=== PATIENT | female | born 1965 | race Caucasian/White ===

== ENCOUNTER 2021-06-08 13:09 | Emergency (ER) | payer OTHER, SELFPAY ==
--- NOTE | ~2021-06-08 | XR_ITS ---
EXAMINATION: XR TIBIA AND FIBULA, RIGHT CLINICAL INFORMATION: Fall. COMPARISON: None TECHNIQUE: AP and lateral views of the right tibia and fibula were obtained. FINDINGS: There is a small bone fragment seen along the tip of fibula likely old fracture. No additional fracture or dislocation seen. The ankle mortise and subtalar joints are normal. The soft tissues are normal. XR/XR tibia fibula RT 2V IMPRESSION: No acute fracture or bony abnormality. There is old fracture tip of distal fibula. No abnormal soft tissue swelling seen.
--- NOTE | ~2021-06-08 | XR_ITS ---
EXAMINATION: RIGHT FOOT AND ANKLE X-RAY CLINICAL INFORMATION: Fall COMPARISON: None TECHNIQUE: 3 views of the right foot and 3 views of the right ankle FINDINGS: Right foot: Bone alignment is normal. No fracture or dislocation is seen. Joint spaces are normal. Soft tissues are normal. Right ankle: No acute fracture or dislocation is seen. There is question of an old healed fracture of the distal fibular shaft. The ankle mortise is normal. Soft tissues are normal. XR/XR ankle RT min 3V IMPRESSION: No acute fracture or dislocation. Questionable trauma to the distal fibular shaft.
--- NOTE | ~2021-06-08 | XR_ITS ---
EXAMINATION: RIGHT FOOT AND ANKLE X-RAY CLINICAL INFORMATION: Fall COMPARISON: None TECHNIQUE: 3 views of the right foot and 3 views of the right ankle FINDINGS: Right foot: Bone alignment is normal. No fracture or dislocation is seen. Joint spaces are normal. Soft tissues are normal. Right ankle: No acute fracture or dislocation is seen. There is question of an old healed fracture of the distal fibular shaft. The ankle mortise is normal. Soft tissues are normal. XR/XR foot RT 2V IMPRESSION: No acute fracture or dislocation. Questionable trauma to the distal fibular shaft.
[2021-06-08 13:37] VITALS: BP 103/70; PULSE 77; RESP 19; TEMP 36.6; O2SAT 98; BMI 10.5
[2021-06-08] MEDS: Acetaminophen 325 MG TABLET 650 MG PO (15:37)
--- NOTE | 2021-06-08 16:46 | ED.LOWEXIN ---
HPI - Extremity Injury (Lower) General Chief Complaint: Extremity Injury, Lower Stated Complaint: Fall/ankle pain Time Seen by Provider: 06/08/21 14:21 Source: patient Mode of arrival: ambulatory History of Present Illness HPI Narrative: 56-year-old female with a past medical history of asthma, bipolar, GERD, COPD, presenting to the ED complaining of right ankle/foot pain s/p mechanical fall last night going down the stairs. Reports foot hyper-extended and fell to ground, denies head trauma or LOC. Has been minimally ambulatory since incident walking on toes. Denies numbness, tingling, weakness, injury to other area MD complaint: ankle injury and foot injury Onset (ago): day(s) Related Data Previous Rx's Medication Instructions Recorded acetaminophen 500 mg tablet 500 mg PO Q6H PRN #20 tab 06/08/21 (Tylenol Extra Strength) lidocaine 5 % topical patch 1 patch TOPICAL DAILY PRN #30 ea 06/08/21 (Lidoderm) MDD remove after 12 hours Allergies Allergy/AdvReac Type Severity Reaction Status Date / Time aspirin [ASPIRIN] Allergy Unknown ANAPHYLAXIS Unverified 12/05/19 17:36 codeine [CODEINE] Allergy Unknown UNK Unverified 12/05/19 17:36 oxycodone [OXYCODONE] Allergy Unknown UNK Unverified 12/05/19 17:36 Review of Systems Review of Systems: Constitutional: No Fever, No Chills ENT/Mouth: No Ear Pain, No Nasal Congestion, No sore throat, No Rhinorrhea, No Swallowing Difficulty Cardiovascular: No Chest Pain, No SOB Respiratory: No Cough, No Sputum Gastrointestinal: No Nausea, No Vomiting, No Diarrhea, No Constipation, No Abdominal pain Genitourinary: No Dysuria, No Urinary Frequency, No Urinary Incontinence, No Flank Pain Musculoskeletal: + joint pain, No Myalgias, No Joint Swelling Skin: No Skin Lesions, No rash Neuro: No Weakness, No Numbness, No Paresthesias, no head trauma, no LOC Yes all other systems are reviewed and are negative REPLACED BY [facility] Past Medical History Attestation statement: The following information was validated with the patient. Medical History Asthma Bipolar 1 disorder COPD (chronic obstructive pulmonary disease) GERD (gastroesophageal reflux disease) Social History Social History Advance Directives: No Advance Directives Information Provided: No Patient : No Physical Exam Vital Signs: Vital Signs: Last Vital Signs Temp 98 F 06/08/21 13:37 Pulse 77 06/08/21 13:37 Resp 19 06/08/21 13:37 BP 103/70 06/08/21 13:37 Pulse Ox 98 06/08/21 13:37 BMI result Body Mass Index 10.5 Const: General: cooperative, healthy appearing and no acute distress Orientation/consciousness: patient oriented x3 Limitations: no limitations HEENT: Head: Yes normal to inspection Ears: hearing grossly normal bilaterally General nose exam: Normal external nose present Face and sinus: Yes normal facial exam Eyes: General: appearance normal, both eyes and all related structures EOM: EOMs intact bilaterally Neck: Neck: Yes normal visual inspection and Yes no meningeal signs Resp: Effort & Inspection: normal respiratory effort and no respiratory distress Auscultation: clear to auscultation bilaterally Cardio: Rate: regular rate Heart sounds: S1 normal heart sound present and S2 normal heart sound present Peripheral pulses: dorsalis pedis present Skin: Rashes: no rashes Wounds: no wounds Neuro: General: patient oriented x3 and no meningeal signs Gait exam (Neuro): Normal gait present Extrem: Other: Right ankle/foot with mild swelling greater to lateral aspect. Diffusely tender over lateral malleolus and midfoot. No appreciable deformity, no erythema/crepitus. No streaking. NV intact, sensation intact to light touch. Full dorsiflexion and plantar flexion limited secondary to pain Course Course Course Narrative: XR ankle RT min 3V / XR foot RT 2V IMPRESSION: No acute fracture or dislocation. Questionable trauma to the distal fibular shaft.? > will obtain fibular XR XR tibia fibula RT 2V IMPRESSION: No acute fracture or bony abnormality. There is old fracture tip of distal fibula. No abnormal soft tissue swelling seen. > patient admits to prior ankle fracture as a child to same leg, likely old however due to acute pain and new injury will put a walking boot have patient follow-up with Orthopedics. Results discussed including worrisome signs and symptoms ? MDM - Extremity Injury (Lower) MDM Narrative Medical decision making narrative: 56-year-old female with a past medical history of asthma, bipolar, GERD, COPD, presenting to the ED complaining of right ankle/foot pain s/p mechanical fall last night going down the stairs. On exam vital signs stable, NAD/nontoxic appearing, physical exam as above, concern for ankle/foot sprain versus fracture. Low concern for dislocation. Plan: X-rays Medical Records Attestation: I reviewed the patient's medical records. Lab Data Attestation: I reviewed the patient's lab results. Discharge Plan Discharge Clinical Impression: Ankle sprain and strain Patient Disposition: Home, Self-Care Instructions: Ankle Sprain (DC), R.I.C.E. Treatment (ED), Walking Boot (ED) Additional Instructions: Your x-ray show an old fractured her distal fibula, nothing new, however due to your new injury and pain wear walking boot at all times until you see the specialist You may take off to shower in sleep Ice and elevate Prescriptions: New acetaminophen [Tylenol Extra Strength] 500 mg tablet 500 mg PO Q6H PRN (Reason: pain or fever) Qty: 20 0RF lidocaine [Lidoderm] 5 % adhesive patch,medicated 1 patch topical DAILY MDD remove after 12 hours PRN (Reason: pain) Qty: 30 0RF Rx Instructions: leave on most painful area for up to 12 hrs Referrals: Sallie Mayo PA-C [[facility]] - 1 week Interventions: ED Discharge Assessment Last Done: 06/08/21 17:18 Discharge Date/Time: 06/08/21 17:19
== END 2021-06-08 17:19 | disposition home or self-care (01) ==
PROVIDERS: Emergency Provider Emergency Medicine Emergency Medical Services
DX: S93.401A Sprain of unspecified ligament of right ankle, initial encounter (principal); S96.911A Strain of unspecified muscle and tendon at ankle and foot level, right foot, initial encounter; W10.8XXA Fall (on) (from) other stairs and steps, initial encounter; Y93.89 Activity, other specified; Y92.9 Unspecified place or not applicable; Y99.9 Unspecified external cause status
CPT/HCPCS: 73590; 73610; 73620; 99283; 99284

== ENCOUNTER 2021-06-29 22:43 | Emergency (ER) | payer OTHER, SELFPAY ==
--- NOTE | ~2021-06-29 | XR_ITS ---
EXAMINATION: XR ANKLE, RIGHT CLINICAL INFORMATION: Pain COMPARISON: 06/08/2021 TECHNIQUE: AP, lateral, and mortise views of the right ankle. FINDINGS: No acute fracture or dislocation. Ankle mortise is congruent. Talar dome intact. Well-corticated ossific density inferior to the distal fibula may represent an old nonunited avulsion fracture or secondary ossification center. No ankle joint effusion. Soft tissue swelling lateral to the ankle. XR/XR ankle RT min 3V IMPRESSION: No acute fracture or dislocation.
[2021-06-29 23:04] VITALS: BP 99/72; PULSE 89; RESP 18; TEMP 36.9; O2SAT 98; BMI 13.6
--- NOTE | 2021-06-30 01:58 | ED.EXTPRO ---
HPI - Extremity Problem General Chief complaint: Extremity Problem <JACKIE Lorenzana Last Filed: 06/30/21 02:40> Stated complaint: cut/ infection on previously injured ankle <JACKIE Lorenzana Last Filed: 06/30/21 02:40> Time Seen by Provider: 06/30/21 03:49 <JACKIE Lorenzana Last Filed: 06/30/21 02:40> Source: patient <JACKIE Lorenzana Last Filed: 06/30/21 02:40> Mode of arrival: wheelchair <JACKIE Lorenzana Last Filed: 06/30/21 02:40> Limitations: no limitations <JACKIE Lorenzana Last Filed: 06/30/21 02:40> History of Present Illness HPI Narrative: 56-year-old female presents with right ankle pain, redness and swelling. Patient stated she had an injury on 06/08/2021 in which she was evaluated for and was diagnosed with an ankle sprain. Patient states that she dropped a tray table and it scraped the right ankle, states that she has to have pain and swelling ever since. Every time she walks she feels cracking in the ankle. <JACKIE Lorenzana Last Filed: 06/30/21 02:40> MD Complaint: extremity pain and extremity swelling <JACKIE Lorenzana Last Filed: 06/30/21 02:40> Onset (ago): day(s) (3) <JACKIE Lorenzana Last Filed: 06/30/21 02:40> Pain Consistency: constant <JACKIE Lorenzana Last Filed: 06/30/21 02:40> Location: right and lower extremity <JACKIE Lorenzana Last Filed: 06/30/21 02:40> Quality: aching <JACKIE Lorenzana Last Filed: 06/30/21 02:40> Radiation: none <Smita Stephen NP - Last Filed: 06/30/21 02:40> Relieving factors: rest <JACKIE Lorenzaan Last Filed: 06/30/21 02:40> Exacerbating factors: weight bearing, walking, exertion and palpation <JACKIE Lorenzana Last Filed: 06/30/21 02:40> Associated symptoms: denies other symptoms <JACKIE Lorenzana Last Filed: 06/30/21 02:40> Related Data Home medications: Previous Rx's Medication Instructions Recorded acetaminophen 500 mg tablet 500 mg PO Q6H PRN #20 tab 06/08/21 (Tylenol Extra Strength) lidocaine 5 % topical patch 1 patch TOPICAL DAILY PRN #30 ea 06/08/21 (Lidoderm) MDD remove after 12 hours doxycycline monohydrate 100 mg 100 mg PO Q12H 10 Days #20 cap 06/30/21 capsule <JACKIE Lorenzana Last Filed: 06/30/21 02:40> Allergies/Adverse reactions: Allergies Allergy/AdvReac Type Severity Reaction Status Date / Time aspirin [ASPIRIN] Allergy Unknown ANAPHYLAXIS Verified 06/29/21 23:07 codeine [CODEINE] Allergy Unknown UNK Verified 06/29/21 23:07 oxycodone [OXYCODONE] Allergy Unknown UNK Verified 06/29/21 23:07 <JACKIE Lorenzana Last Filed: 06/30/21 02:40> Review of Systems Review of Systems: Constitutional: No Fever, No Chills ENT/Mouth: No Ear Pain, No Hoarseness, No sore throat Eyes: No Eye Pain, No Swelling, No Redness, No Foreign Body Cardiovascular: No Chest Pain, No SOB Respiratory: No Cough, No Dyspnea Gastrointestinal: No Nausea, No Vomiting, No Diarrhea, No abdominal Pain Genitourinary: No Dysuria, No Hematuria Musculoskeletal: positive right ankle swelling and pain, No Myalgias, No Joint Swelling Skin: Positive erythema to the right ankle, No Skin lacerations, No rash Neuro: No Weakness, No Numbness, No Paresthesias, No Loss of Consciousness, No Dizziness, No Headache Psych: No Anxiety/Panic, No Depression Heme/Lymph: no easy bruising, no Lymphadenopathy Endocrine: No Polyuria, No Polydipsia <JACKIE Lorenzana Last Filed: 06/30/21 02:40> Yes all other systems are reviewed and are negative <JACKIE Lorenzana Last Filed: 06/30/21 02:40> [facility] Past Medical History Attestation statement: The following information was validated with the patient. <Smita Stephen NP - Last Filed: 06/30/21 02:40> Source: old records reviewed <Smita Stephen NP - Last Filed: 06/30/21 02:40> Medical History: Medical History Asthma Bipolar 1 disorder COPD (chronic obstructive pulmonary disease) GERD (gastroesophageal reflux disease) <Smita Stephen NP - Last Filed: 06/30/21 02:40> Social History Social History: Social History Advance Directives: No <Smita Stephen NP - Last Filed: 06/30/21 02:40> Physical Exam Vital Signs: Vital Signs: Last Vital Signs Temp 97.3 F 06/30/21 02:16 Pulse 71 06/30/21 02:16 Resp 16 06/30/21 02:16 BP 98/67 06/30/21 02:16 Pulse Ox 99 06/30/21 02:16 BMI result Body Mass Index 13.6 <Smita Stephen NP - Last Filed: 06/30/21 02:40> Vital Signs: Last Vital Signs Temp 97.3 F 06/30/21 02:16 Pulse 71 06/30/21 02:16 Resp 16 06/30/21 02:16 BP 98/67 06/30/21 02:16 Pulse Ox 99 06/30/21 02:16 BMI result Body Mass Index 13.6 <Liang Gil MD - Last Filed: 06/30/21 03:57> Appearance: Alert. Oriented X3. No acute distress. Eyes: Pupils equal, round and reactive to light. ENT: Pharynx normal. Neck: Normal inspection. Neck supple. CVS: Normal heart rate and rhythm. Pulses normal. Respiratory: No respiratory distress. Breath sounds normal. Abdomen: Soft and nontender. Skin: Skin warm and dry. Normal skin color. Normal skin turgor. Extremities: Right lateral malleolar tenderness with erythema and 3 cm superficial abrasion Neuro: No motor deficit. No sensory deficit. Cranial nerves 2-12 intact <Smita Stephen NP - Last Filed: 06/30/21 02:40> Course Course Course Narrative: 56-year-old female presents with lateral right ankle pain and erythema with superficial abrasion. Stated that she was treated on 06/08/2021 for right ankle injury diagnosed with sprain and given an ankle boot. States that she has been walking with the ankle boot however after she dropped the tray on her ankle she has been unable to wear the boot. Every time she walks she feels cracking and crunching. She does not report any fevers or chills, nausea vomiting diarrhea constipation or any other concerning symptoms. Will order x-rays. Give doxycycline for cellulitis and Tylenol for pain management. 02:26. X-rays are pending. Sign-out to Dr. Gil. Plan of care to discharge home, patient does have a walker boot. Will treat for cellulitis. <Smita Stephen NP - Last Filed: 06/30/21 02:40> 56-year-old female presents with lateral right ankle pain and erythema with superficial abrasion. Stated that she was treated on 06/08/2021 for right ankle injury diagnosed with sprain and given an ankle boot. States that she has been walking with the ankle boot however after she dropped the tray on her ankle she has been unable to wear the boot. Every time she walks she feels cracking and crunching. She does not report any fevers or chills, nausea vomiting diarrhea constipation or any other concerning symptoms. Will order x-rays. Give doxycycline for cellulitis and Tylenol for pain management. 02:26. X-rays are pending. Sign-out to Dr. Gil. Plan of care to discharge home, patient does have a walker boot. Will treat for cellulitis. 0350: Right ankle x-ray revealed no acute fracture dislocation on the radiology reading. The patient will be discharged home and treated for cellulitis. <Liang Gil MD - Last Filed: 06/30/21 03:57> MDM - Extremity (Nontraumatic) MDM Narrative Medical decision making narrative: Ankle sprain <Smita Stephen NP - Last Filed: 06/30/21 02:40> Differential Diagnosis Differential diagnosis: Likely cellulitis <Smita Stephen NP - Last Filed: 06/30/21 02:40> Medical Records Attestation: I reviewed the patient's medical records. <Smita Stephen NP - Last Filed: 06/30/21 02:40> Imaging Data Right ankle x-ray: Attestation: I personally reviewed and interpreted this imaging study as follows: <Roxihuber Stephen NP - Last Filed: 06/30/21 02:40> Discharge Plan Discharge Clinical Impression: Cellulitis <Smita Stephen NP - Last Filed: 06/30/21 02:40> Patient Disposition: Home, Self-Care <Smita Stephen NP - Last Filed: 06/30/21 02:40> Instructions: Cellulitis (ED) <Smita Stephen NP - Last Filed: 06/30/21 02:40> Additional Instructions: You were evaluated for right ankle pain and swelling. X-rays are negative for acute findings. We are treating you for cellulitis. Please take doxycycline 100 mg twice a day for the next 10 days. Cellulitis Discharge Instructions You have an infection of your skin. This is called cellulitis. This is usually caused by bacteria on your skin that gets under your skin and then causes the infection Take doxycycline 100 mg pills, 1 pill twice a day for 10 days. This is an antibiotic that should help your body fight off the infection. Keep the area of cellulitis elevated to help reduce swelling in the infected area and this helps with the healing process Also apply a heating pad on low or a warm compress for 15 minutes, 4-6 times a day. This will increase the blood flow to the area and will bring white blood cells to the area which will help your body fight off the infection. Also take Tylenol( acetaminophen) 325 mg pills, 2 pills every 4 hours as needed for pain. If we keiko a line around the area of cellulitis, the redness should withdraw from the line in the next 1-3 days. If the redness crosses the line this is a sign that the infection is getting worse and you should see your doctor or return to the Emergency Department for a recheck. Other signs of worsening infection include fever, chills, weakness, increased pain, increased redness, increased swelling or red streaks going away from the area of infection. If you develop any of these symptoms or any other symptoms that are concerning to you, see your doctor immediately or return to the Emergency Department. Follow up with your doctor in 3 days for a recheck Please read the other printed instructions that we printed for you. Thank you for choosing this emergency department for evaluation. Please follow-up with primary care physician as needed. Return to the emergency department for any new, concerning, or worsening symptoms. <Smita Stephen NP - Last Filed: 06/30/21 02:40> Prescriptions: New doxycycline monohydrate 100 mg capsule 100 mg PO Q12H 10 Days Qty: 20 0RF No Action acetaminophen [Tylenol Extra Strength] 500 mg tablet 500 mg PO Q6H PRN (Reason: pain or fever) Qty: 20 0RF lidocaine [Lidoderm] 5 % adhesive patch,medicated 1 patch topical DAILY MDD remove after 12 hours PRN (Reason: pain) Qty: 30 0RF Rx Instructions: leave on most painful area for up to 12 hrs <Smita Stephen NP - Last Filed: 06/30/21 02:40>
[2021-06-30 02:16] VITALS: BP 98/67; PULSE 71; RESP 16; TEMP 36.3; O2SAT 99
[2021-06-30] MEDS: Acetaminophen 325 MG TABLET 650 MG PO (02:44)
== END 2021-06-30 04:01 | disposition home or self-care (01) ==
PROVIDERS: Emergency Provider Emergency Medicine Emergency Medical Services
DX: S90.511A Abrasion, right ankle, initial encounter (principal); L03.115 Cellulitis of right lower limb; X58.XXXA Exposure to other specified factors, initial encounter; Y93.9 Activity, unspecified; Y92.9 Unspecified place or not applicable; Y99.9 Unspecified external cause status; Z79.899 Other long term (current) drug therapy
CPT/HCPCS: 73610; 99283; 99284